=== PATIENT | female | born 1990 | race Caucasian/White ===

== ENCOUNTER 2017-11-30 15:30 | Emergency (ER) | payer OTHER ==
[2017-11-30 15:46] VITALS: BP 113/84
--- NOTE | 2017-11-30 16:18 | ED Physician Documentation ---
PD HPI SKIN - Stated complaint Stated Complaint: TAILBONE PX - Chief complaint Chief Complaint: Wound - History obtained from History obtained from: Patient - History of Present Illness Timing - onset: How many days ago (4) Timing - duration: Days (4) Timing - details: Gradual onset, Still present Location: Back Quality / character: Painful, Discolored, Swelling Improved by: Other (meloxicam and ibuprofen) Associated symptoms: No: Fever, Myalgias, Joint pain, Headache, Facial swelling , Dyspnea, Abd pain, N/V/D, Urinary sx Similar symptoms before: Has not had sx before Recently seen: Not recently seen - Additional information Additional information: 27-year-old female has developed pain at the end of her back above her tailbone and it is become red. She has had this about 4 days now. She does not recall injuring the area at all. She has not had this happen to her previously. She does not have a fever or chills. Review of Systems Constitutional: denies: Fever, Chills Eyes: denies: Decreased vision Ears: denies: Ear pain Nose: denies: Congestion Throat: denies: Sore throat Cardiac: denies: Chest pain / pressure Respiratory: denies: Dyspnea, Cough GI: denies: Abdominal Pain, Nausea, Vomiting : denies: Dysuria, Frequency Skin: reports: Other (tender area over buttocks) Musculoskeletal: denies: Neck pain, Back pain, Extremity pain Neurologic: denies: Generalized weakness, Focal weakness, Numbness PD PAST MEDICAL HISTORY - Past Medical History Past Medical History: Yes Musculoskeletal: Other Other Past Medical History: Arthritis - Past Surgical History Past Surgical History: No - Present Medications Home Medications: Ambulatory Orders Medication Instructions Recorded Confirmed Control Pills 11/30/17 Sulfamethoxazole/Trimethoprim 1 each PO BID #14 tablet 11/30/17 [Sulfamethoxazole-Tmp Ds Tablet] - Allergies Allergies/Adverse Reactions: Allergies Allergy/AdvReac Type Severity Reaction Status Date / Time No Known Drug Allergies Allergy Verified 11/30/17 15:46 - Social History Does the pt smoke?: No Smoking Status: Never smoker Does the pt drink ETOH?: Yes Does the pt have substance abuse?: No - Immunizations Immunizations are current?: Yes PD ED PE NORMAL - Vitals Vital signs reviewed: Yes (hypertensive) - General General: Alert and oriented X 3, No acute distress, Well developed/nourished - HEENT HEENT: Atraumatic, PERRL - Neck Neck: Supple, no meningeal sign - Respiratory Respiratory: No respiratory distress - Back Back: Other (At the end of the lumbar spine over the proximal sacrum there is some redness and tenderness with a palpable firm mass. There is no fluctuance and the tenderness is not exquisit. ) - Derm Derm: Normal color, Warm and dry, No rash - Extremities Extremities: No deformity, No edema - Neuro Neuro: Alert and oriented X 3, buyer assistant 2-12 intact, No motor deficit, No sensory deficit, Normal speech Eye Opening: Spontaneous Motor: Obeys Commands Verbal: Oriented GCS Score: 15 - Psych Psych: Normal mood, Normal affect Results - Vitals Vitals: Vital Signs - 24 hr 11/30/17 15:40 Temperature 36.3 C L Heart Rate 72 Respiratory 16 Rate Blood Pressure 113/84 H O2 Saturation 97 Oxygen O2 Source Room air PD MEDICAL DECISION MAKING - ED course Complexity details: considered differential, d/w patient ED course: 27-year-old female with a pilonidal cyst that is inflamed but is not ripe for incision and drainage. - Sepsis Event Vital Signs: Vital Signs - 24 hr 11/30/17 15:40 Temperature 36.3 C L Heart Rate 72 Respiratory 16 Rate Blood Pressure 113/84 H O2 Saturation 97 Oxygen O2 Source Room air Departure - Departure Disposition: 01 Home, Self Care Clinical Impression: Pilonidal cyst with abscess Condition: Stable Instructions: ED Cyst Pilonidal Infec Abx Only Follow-Up: YOVANNY HENRY MD [Primary Care Provider] - Prescriptions: Sulfamethoxazole/Trimethoprim [Sulfamethoxazole-Tmp Ds Tablet] 1 each PO BID # 14 tablet
== END 2017-11-30 16:24 | disposition home or self-care (01) ==
LOC: ED 15:30
DX: L05.01 Pilonidal cyst with abscess (principal)
CPT/HCPCS: 99283

== ENCOUNTER 2017-12-03 08:08 | Emergency (ER) | payer OTHER ==
--- NOTE | 2017-12-03 09:24 | ED Physician Documentation ---
PD HPI MHE - History of Present Illness Primary symptom: Other (has had redness and swelling at tailbone area for several days.Seen in ER couple days ago and not felt to have abscess as yet. Rx with Bactrim. Patient says the area nathalia more swelling and has gotten more painful despite 2 days on the meds. No fevers.) Timing - onset: How many days ago (several) Recently seen: Emergency Dept (2 days ago and Rx with Bactrim for cellulitic appearance and did not have abscess appearance as yet) Review of Systems Constitutional: denies: Fever, Myalgias GI: denies: Abdominal Pain, Nausea, Vomiting, Diarrhea : denies: Dysuria, Frequency Skin: reports: Lesions (red, firm swelling area at tailbone/ posterior rectum area. No hemorrhoids.) Musculoskeletal: denies: Back pain PD PAST MEDICAL HISTORY - Past Medical History Cardiovascular: None Respiratory: None Neuro: None Endocrine/Autoimmune: None Musculoskeletal: Other - Past Surgical History Past Surgical History: No - Present Medications Home Medications: Ambulatory Orders Medication Instructions Recorded Confirmed Control Pills 11/30/17 Sulfamethoxazole/Trimethoprim 1 each PO BID #14 tablet 11/30/17 [Sulfamethoxazole-Tmp Ds Tablet] HYDROcod/ACETAM 5/325 [[place] 5/325] 1 tab PO Q6H PRN #15 tablet 12/03/17 RX: Naproxen 375 mg PO BID #20 tablet 12/03/17 Sulfamethox/Trimeth 800/160 1 each PO BID #14 tablet 12/03/17 [Bactrim Ds 800/160] - Allergies Allergies/Adverse Reactions: Allergies Allergy/AdvReac Type Severity Reaction Status Date / Time No Known Drug Allergies Allergy Verified 12/03/17 08:42 - Social History Does the pt smoke?: No Smoking Status: Never smoker Does the pt drink ETOH?: Yes Does the pt have substance abuse?: No - Immunizations Immunizations are current?: Yes PD ED PE NORMAL - Vitals Vital signs reviewed: Yes - General General: Alert and oriented X 3, Well developed/nourished, Other (appears in pain to try to sit.) - Abdomen Abdomen: Soft, Non tender - Back Back: No CVA TTP - Derm Derm: Normal color, Warm and dry, Other (redness with swelling and firmness in central pilonidal area, more to the left. SUrrounding redness as well. ) - Neuro Neuro: Alert and oriented X 3, No motor deficit, Normal speech Results - Vitals Vitals: Vital Signs - 24 hr 12/03/17 12/03/17 08:35 11:29 Temperature 36.4 C L 36.4 C L Heart Rate 90 90 Respiratory 16 16 Rate Blood Pressure 111/81 H 132/82 H O2 Saturation 96 97 Oxygen O2 Source Room air Procedures - Abscess I&D (location) pilonidal area Preparation: Confirmed with ultrasound, Chlorhexadine, Lidocaine 2 %, With epi Incision: Incised with scalpel, Purulent drainage, Irrigated, Packed. No: Culture obtained Other: Pt tolerated well, Dressing applied, Antibiotic prescribed PD MEDICAL DECISION MAKING - ED course Complexity details: reviewed old records, considered differential (bedside U/S showing fluid collection now. ), d/w patient - Sepsis Event Vital Signs: Vital Signs - 24 hr 12/03/17 12/03/17 08:35 11:29 Temperature 36.4 C L 36.4 C L Heart Rate 90 90 Respiratory 16 16 Rate Blood Pressure 111/81 H 132/82 H O2 Saturation 96 97 Oxygen O2 Source Room air Departure - Departure Disposition: 01 Home, Self Care Clinical Impression: Pilonidal cyst with abscess Condition: Stable Record reviewed to determine appropriate education?: Yes Instructions: ED Abscess IandD Follow-Up: YOVANNY HENRY MD [Primary Care Provider] - Prescriptions: HYDROcod/ACETAM 5/325 [[place] 5/325] 1 tab PO Q6H PRN #15 tablet PRN Reason: Pain RX: Naproxen 375 mg PO BID #20 tablet Sulfamethox/Trimeth 800/160 [Bactrim Ds 800/160] 1 each PO BID #14 tablet Comments: This should get improving better now that it is draining. Leave the wick in there for 1-2 days. This will promote further drainage from the incised abscess. Continue the Bactrim antibiotics for several more days to week to clear at the infection inside as well. Recheck in 1-2 days for wick removal and to see how you are doing. Naproxen or ibuprofen 2-3 times a day for inflammation and pain. Add Tylenol or hydrocodone as needed for pain. Rest off work today and tonight. Forms: Activity restrictions Discharge Date/Time: 12/03/17 11:31
[2017-12-03] MEDS ORDERED: LIDOCAINE MPF 2%-EPI 1:200000 20 ML VIAL SUBQ ONE (09:43)
[2017-12-03] MEDS ORDERED: NAPROXEN 250 MG TABLET PO STA (09:44)
[2017-12-03] MEDS ORDERED: ACETAMINOPHEN 325 MG TABLET PO STA (09:44)
[2017-12-03 11:31] VITALS: BP 132/82
== END 2017-12-03 11:31 | disposition home or self-care (01) ==
LOC: ED 08:08
DX: L05.01 Pilonidal cyst with abscess (principal)
CPT/HCPCS: 10080; 99283; A9270

== ENCOUNTER 2018-05-10 21:31 | Emergency (ER) | payer OTHER ==
[2018-05-10 21:52] VITALS: BP 130/74
--- NOTE | 2018-05-10 21:55 | ED Physician Documentation ---
PD HPI FEMALE - Stated complaint Stated Complaint: FEM - Chief complaint Chief Complaint: Abd Pain - History obtained from History obtained from: Patient - History of Present Illness Timing - onset: How many days ago (2) Timing - duration: Days (2) Timing - details: Gradual onset, Still present Associated symptoms: Dysuria, Urinary frequency (with odorous urine smell). 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 - Present Medications Home Medications: Ambulatory Orders Medication Instructions Recorded Confirmed Control Pills 11/30/17 Sulfamethoxazole/Trimethoprim 1 each PO BID #14 tablet 11/30/17 [Sulfamethoxazole-Tmp Ds Tablet] HYDROcod/ACETAM 5/325 [[place] 5/325] 1 tab PO Q6H PRN #15 tablet 12/03/17 Naproxen 375 mg PO BID #20 tablet 12/03/17 Sulfamethox/Trimeth 800/160 1 each PO BID #14 tablet 12/03/17 [Bactrim Ds 800/160] Phenazopyridine HCl [Pyridium] 200 mg PO TID PRN #6 tablet 05/10/18 Sulfamethox/Trimeth 800/160 1 each PO BID #10 tablet 05/10/18 [Bactrim Ds 800/160] - Allergies Allergies/Adverse Reactions: Allergies Allergy/AdvReac Type Severity Reaction Status Date / Time No Known Drug Allergies Allergy Verified 05/10/18 21:52 - Social History Does the pt smoke?: No Smoking Status: Never smoker Does the pt drink ETOH?: Yes Does the pt have substance abuse?: No - Immunizations Immunizations are current?: Yes PD ED PE NORMAL - Vitals Vital signs reviewed: Yes - General General: Alert and oriented X 3, No acute distress, Well developed/nourished - Abdomen Abdomen: Soft, Non tender - Back Back: No CVA TTP - Derm Derm: Normal color, Warm and dry Results - Vitals Vitals: Oxygen O2 Source Room air - Labs Labs: Laboratory Tests 05/10/18 21:45 Urine Color YELLOW Urine Clarity CLEAR Urine pH 7.0 Ur Specific [place] 1.020 Urine Protein NEGATIVE Urine Glucose (UA) NEGATIVE Urine Ketones NEGATIVE Urine Occult Blood TRACE-INTA Urine Nitrite NEGATIVE Urine Bilirubin NEGATIVE Urine Urobilinogen 0.2 (NORMAL) Ur Leukocyte Esterase SMALL H Urine RBC 6-10 H Urine WBC 6-10 H Ur Squamous Epith Cells MOD Squamous H Urine Bacteria Rare Ur Microscopic Review INDICATED Urine Culture Comments NOT INDICATED Urine HCG, Qual NEGATIVE PD MEDICAL DECISION MAKING - ED course Complexity details: considered differential (dysuria symptoms and UA is reasonably c/w UTI. discussed possible vaginitis and she denies discharge/irritation, so defer pelvic for now. See what urine culture shows and if symptoms improve. ), d/w patient Departure - Departure Disposition: 01 Home, Self Care Clinical Impression: Dysuria UTI (urinary tract infection) Qualifiers: Urinary tract infection type: acute cystitis Hematuria presence: without hematuria Qualified Code(s): N30.00 - Acute cystitis without hematuria Condition: Stable Record reviewed to determine appropriate education?: Yes Instructions: ED UTI Cystitis Female Follow-Up: YOVANNY HENRY MD [Primary Care Provider] - Prescriptions: Phenazopyridine HCl [Pyridium] 200 mg PO TID PRN #6 tablet PRN Reason: dysuria Sulfamethox/Trimeth 800/160 [Bactrim Ds 800/160] 1 each PO BID #10 tablet Comments: Drink lots of fluids and stay well-hydrated. Your urine test looks consistent enough with bladder infection to treat it that way. Your test is negative. Take phenazopyridine 3 times a day to help with the discomfort of urination. Tylenol or ibuprofen if needed for discomfort. Bactrim antibiotic twice daily as directed for 5 days. Recheck if not improved over the next few days or if not fully better by 3-5 days. Alternative considerations would be back material vaginal infection instead but again your urine looks enough like a bladder infection to account for your symptoms. Discharge Date/Time: 05/10/18 22:28
[2018-05-10 21:56] LABS: BILIRUBIN,URINE NEGATIVE (NEGATIVE); GLUCOSE, URINE (UA) NEGATIVE (NEGATIVE); KETONES,URINE (UA) NEGATIVE (NEGATIVE); LEUKOCYTE ESTERASE, URINE SMALL (NEGATIVE); NITRITE,URINE NEGATIVE (NEGATIVE); OCCULT BLOOD,URINE TRACE-INTA (NEGATIVE); PROTEIN,URINE NEGATIVE (NEGATIVE); UROBILINOGEN,URINE 0.2 (NORMAL) E.U./dL (NORMAL)
[2018-05-10 22:01] LABS: CLARITY,URINE CLEAR (CLEAR); HCG UR QUAL NEGATIVE
[2018-05-10 22:11] LABS: BACTERIA,URINE Rare /HPF (None Seen); SQUAMOUS EPITHELIAL CELL,UR MOD Squamous (<= Few)
[2018-05-10] MEDS ORDERED: PHENAZOPYRIDINE 100 MG TABLET PO STA (22:19)
[2018-05-10] MEDS ORDERED: SULFAMETH/TRIMETH DS 800/160 MG TABLET PO STA (22:21)
== END 2018-05-10 22:28 | disposition home or self-care (01) ==
LOC: ED 21:31
DX: N30.00 Acute cystitis without hematuria (principal)
CPT/HCPCS: 81001; 81025; 99283; A9270; 81003; 87086

== ENCOUNTER 2019-02-14 12:48 | Emergency (ER) | payer OTHER ==
[2019-02-14 12:58] VITALS: BP 147/95
--- NOTE | 2019-02-14 13:04 | ED Physician Documentation ---
History of Present Illness - Stated complaint Stated Complaint: FEM - Chief complaint Chief Complaint: General - History obtained from History obtained from: Patient (For the last couple of days she has had itching from her vagina with a small amount of increased discharge. Sex was uncomfortable. A little bit of dysuria. 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 - Present Medications Home Medications: Ambulatory Orders Medication Instructions Recorded Confirmed Control Pills 11/30/17 Sulfamethoxazole/Trimethoprim 1 each PO BID #14 tablet 11/30/17 [Sulfamethoxazole-Tmp Ds Tablet] HYDROcod/ACETAM 5/325 [[place] 5/325] 1 tab PO Q6H PRN #15 tablet 12/03/17 Naproxen 375 mg PO BID #20 tablet 12/03/17 Sulfamethox/Trimeth 800/160 1 each PO BID #14 tablet 12/03/17 [Bactrim Ds 800/160] Phenazopyridine HCl [Pyridium] 200 mg PO TID PRN #6 tablet 05/10/18 Sulfamethox/Trimeth 800/160 1 each PO BID #10 tablet 05/10/18 [Bactrim Ds 800/160] - Allergies Allergies/Adverse Reactions: Allergies Allergy/AdvReac Type Severity Reaction Status Date / Time No Known Drug Allergies Allergy Verified 02/14/19 12:53 - Social History Does the pt smoke?: No Smoking Status: Never smoker Does the pt drink ETOH?: Yes Does the pt have substance abuse?: No - Immunizations Immunizations are current?: Yes PD ED PE NORMAL - Vitals Vital signs reviewed: Yes - General General: Alert and oriented X 3, No acute distress - Abdomen Abdomen: Soft, Non tender - Female Female : Deferred (She will self collect swabs) - Back Back: No CVA TTP, No spinal TTP - Derm Derm: No rash - Neuro Neuro: Alert and oriented X 3, Normal speech Results - Vitals Vitals: Vital Signs - 24 hr 02/14/19 12:53 Temperature 36.7 C Heart Rate 81 Respiratory 15 Rate Blood Pressure 147/95 H O2 Saturation 100 Oxygen O2 Source Room air - Labs Labs: Microbiology 02/14/19 13:17 Wet Prep - Final Genital - Vaginal Laboratory Tests 02/14/19 13:17 Urine Color YELLOW Urine Clarity CLEAR Urine pH 6.0 Ur Specific [place] 1.010 Urine Protein NEGATIVE Urine Glucose (UA) NEGATIVE Urine Ketones NEGATIVE Urine Occult Blood NEGATIVE Urine Nitrite NEGATIVE Urine Bilirubin NEGATIVE Urine Urobilinogen 0.2 (NORMAL) Ur Leukocyte Esterase NEGATIVE Ur Microscopic Review NOT INDICATED Urine Culture Comments NOT INDICATED Urine HCG, Qual NEGATIVE PD MEDICAL DECISION MAKING - ED course ED course: 29-year-old woman with symptoms most consistent with a vaginitis. Initial wet prep and urinalysis are negative. After discussion of options we will give her fluconazole pending PCR swabs. Departure - Departure Disposition: 01 Home, Self Care Clinical Impression: Vaginitis Qualifiers: Chronicity: acute Qualified Code(s): N76.0 - Acute vaginitis Condition: Good Record reviewed to determine appropriate education?: Yes Instructions: ED Vaginal Infec Fungal [place] Comments: As discussed your initial swabs are negative, if you have an STD or other infection other than a yeast infection we will call you later. You are treated for a yeast infection. Return for new or worsening symptoms. 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 Discharge Date/Time: 02/14/19 14:04
[2019-02-14 13:25] LABS: BILIRUBIN,URINE NEGATIVE (NEGATIVE); GLUCOSE, URINE (UA) NEGATIVE (NEGATIVE); KETONES,URINE (UA) NEGATIVE (NEGATIVE); LEUKOCYTE ESTERASE, URINE NEGATIVE (NEGATIVE); NITRITE,URINE NEGATIVE (NEGATIVE); OCCULT BLOOD,URINE NEGATIVE (NEGATIVE); PROTEIN,URINE NEGATIVE (NEGATIVE); UROBILINOGEN,URINE 0.2 (NORMAL) E.U./dL (NORMAL)
[2019-02-14 13:27] LABS: CLARITY,URINE CLEAR (CLEAR); HCG UR QUAL NEGATIVE
[2019-02-14] MEDS ORDERED: FLUCONAZOLE 100 MG TABLET PO STA (13:39)
[2019-02-14 15:30] LABS: CANDIDA GROUP DNA NEGATIVE (NEGATIVE); CANDIDA KRUSEI DNA NEGATIVE (NEGATIVE); TRICHOMONAS VAGINALIS DNA NEGATIVE (NEGATIVE)
[2019-02-14 20:36] LABS: TRICHOMONAS VAGINALIS DNA NEGATIVE (NEGATIVE)
== END 2019-02-14 14:04 | disposition home or self-care (01) ==
LOC: ED 12:48
DX: N76.0 Acute vaginitis (principal)
CPT/HCPCS: 81003; 81025; 87210; 87481; 87491; 87591; 87661; 87801; 99283; A9270; 81001; 87086

== ENCOUNTER 2020-06-29 18:45 | Emergency (ER) | payer OTHER ==
--- OUTSIDE RECORDS SUMMARY | 2020-06-29 19:01 | EXTERNAL MEDICAL SUMMARY RPT | Continuity of Care Document ---
:1990 Demographics Phone Unavailable Preferred Language Unknown Marital Status Unknown [employer]an Affiliation Unknown Race Unknown Ethnic Group Unknown Author Organization [facility] Address [address] [place] [address] Phone Social History date description facility [id number]
[2020-06-29 19:51] VITALS: BP 142/78
--- NOTE | 2020-06-30 05:21 | ED Physician Documentation ---
History of Present Illness - Stated complaint Stated Complaint: FEMALE - Chief complaint Chief Complaint: General - History obtained from History obtained from: Patient - Additonal information Additional information: 30-year-old woman presents requesting a test, stating that she took several negative tests at home but is concerned that they are false negatives. No other concerns at this time. Review of Systems : reports: Missed period. 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 - Present Medications Home Medications: Ambulatory Orders Medication Instructions Recorded Confirmed Dextroamphetamine/Amphetamine 10 mg PO QPM 06/29/20 06/29/20 [Adderall 10 mg Tablet] Dextroamphetamine/Amphetamine 30 mg PO DAILY 06/29/20 06/29/20 [Adderall 30 mg Tablet] - Allergies Allergies/Adverse Reactions: Allergies Allergy/AdvReac Type Severity Reaction Status Date / Time No Known Drug Allergies Allergy Verified 06/29/20 18:48 - Social History Does the pt smoke?: No Smoking Status: Never smoker Does the pt drink ETOH?: Yes Does the pt have substance abuse?: No - Immunizations Immunizations are current?: Yes - POLST Patient has POLST: No PD ED PE NORMAL - Vitals Vital signs reviewed: Yes - General General: Alert and oriented X 3, No acute distress, Well developed/nourished - HEENT HEENT: Atraumatic, PERRL, EOMI - Derm Derm: Normal color, Warm and dry - Psych Psych: Normal mood, Normal affect Results - Vitals Vitals: Vital Signs - 24 hr 06/29/20 06/29/20 18:49 19:51 Temperature 36.7 C 36.7 C Heart Rate 90 88 Respiratory 18 19 Rate Blood Pressure 150/86 H 142/78 H O2 Saturation 100 100 Oxygen O2 Source Room air - Labs Labs: Laboratory Tests 06/29/20 19:10 HCG, Quant < 0.60 PD MEDICAL DECISION MAKING - ED course ED course: 30-year-old woman presents requesting blood test. Her test was negative. I informed the patient and she had no other concerns. Patient will follow up with her primary doctor Departure - Departure Disposition: 01 Home, Self Care Clinical Impression: Encounter for medical screening examination Condition: Good Comments: You are not . Please follow-up with your primary doctor. Return to the emergency department if you have other concerns Discharge Date/Time: 06/29/20 20:40
== END 2020-06-29 20:40 | disposition home or self-care (01) ==
LOC: ED 18:45
DX: Z32.02 Encounter for pregnancy test, result negative (principal); N91.2 Amenorrhea, unspecified
CPT/HCPCS: 36415; 84702; 99281; 99283

== ENCOUNTER 2020-08-23 11:35 | Outpatient (CLI) | payer OTHER ==
[2020-08-23 18:13] LABS: BASOPHILS % (AUTO) 0.5 %; EOSINOPHILS # (AUTO) 0.1 10^3/uL (0.0-0.7); EOSINOPHILS % (AUTO) 1.4 %; HCT - HEMATOCRIT 46.2 % (37.0-47.0); HGB - HEMOGLOBIN 14.6 g/dL (12.0-16.0); LYMPHOCYTES # (AUTO) 2.6 10^3/uL (1.5-3.5); LYMPHOCYTES % (AUTO) 34.3 %; MEAN CORPUSCULAR HEMOGLOBIN 27.5 pg (27.0-31.0); MEAN CORPUSCULAR HGB CONC 31.6 g/dL (32.0-36.0); MEAN CORPUSCULAR VOLUME 87.2 fL (81.0-99.0); MONOCYTES # (AUTO) 0.8 10^3/uL (0.0-1.0); MONOCYTES % (AUTO) 10.1 %; NEUTROPHILS # (AUTO) 4.1 10^3/uL (1.5-6.6); NEUTROPHILS % (AUTO) 53.4 %; PLT - PLATELET COUNT 303 10^3/uL (130-450); RED CELL DISTRIBUTION WIDTH 13.3 % (12.0-15.0); WHITE BLOOD COUNT 7.7 x10^3/uL (4.8-10.8)
[2020-08-23 18:40] LABS: ALBUMIN 4.5 g/dL (3.2-5.5); ALBUMIN/GLOBULIN RATIO 1.5 (1.0-2.2); ALKALINE PHOSPHATASE 87 IU/L (42-121); ALT ALANINE AMINOTRANSFERASE 30 IU/L (10-60); AST ASPARTATE AMINOTRANSFERASE 22 IU/L (10-42); BILIRUBIN,TOTAL 0.5 mg/dL (0.2-1.0); BUN - BLOOD UREA NITROGEN 9 mg/dL (6-20); CALCIUM 9.2 mg/dL (8.5-10.3); CARBON DIOXIDE - CO2 24 mmol/L (21-32); CHLORIDE 103 mmol/L (101-111); CHOL/HDL RATIO 4.4 (<4.4); CHOLESTEROL 206 mg/dL; CREATININE 0.7 mg/dL (0.4-1.0); GFR - MDRD 100 (>89); GLUCOSE 85 mg/dL (70-100); HDL CHOLESTEROL 47 mg/dL; LDL CHOLESTEROL,CALCULATED 141 mg/dL; POTASSIUM 4.3 mmol/L (3.5-5.0); SODIUM 138 mmol/L (135-145); TOTAL PROTEIN 7.6 g/dL (6.7-8.2); TRIGLYCERIDES 89 mg/dL; VLDL CHOLESTEROL 18 mg/dL
[2020-08-23 18:54] LABS: THYROID STIMULATING HORMONE 0.95 uIU/mL (0.34-5.60)
[2020-08-23 18:56] LABS: FREE T4 (FREE THYROXINE) 0.89 ng/dL (0.58-1.64)
[2020-08-23 19:00] LABS: PROLACTIN 5.35 ng/mL
[2020-08-23 19:21] LABS: FOLLICLE STIMULATING HORMONE 5.87 mIU/mL
[2020-08-23 20:22] LABS: ESTIMATED AVERAGE GLUCOSE 108 mg/dL (70-100); HEMOGLOBIN A1c% 5.4 % (4.27-6.07)
[2020-08-30 12:54] LABS: HEPATITIS C ANTIBODY Non-reactive
[2020-08-30 12:59] LABS: HEPATITIS B SURFACE ANTIGEN NON-REACTIVE
== END 2020-08-23 23:59 | disposition home or self-care (01) ==
LOC: LAB.WCP 11:35
PROVIDERS: ATTEND Obstetrics & Gynecology
DX: Z13.220 Encounter for screening for lipoid disorders (principal); Z83.2 Family history of diseases of the blood and blood-forming organs and certain disorders involving the immune mechanism; Z13.21 Encounter for screening for nutritional disorder; N91.1 Secondary amenorrhea; Z13.1 Encounter for screening for diabetes mellitus; Z11.3 Encounter for screening for infections with a predominantly sexual mode of transmission
CPT/HCPCS: 36415; 80053; 80061; 81241; 81599; 82306; 82670; 83001; 83036; 83498; 83520; 83721; 84146; 84403; 84439; 84443; 84702; 85025; 86592; 86762; 86787; 86803; 87340; 87389

== ENCOUNTER 2020-09-23 13:42 | Outpatient (CLI) | payer OTHER ==
--- NOTE | 2020-09-23 14:52 | Ultrasound Report ---
PROCEDURE: Pelvic w/Transvaginal INDICATIONS: Amenorrhea TECHNIQUE: Real-time scanning was performed of the pelvic organs, with image documentation. Additional endovagi nal scanning was necessary due to incomplete visualization of the adnexal and endometrial structures by transabdominal scanning. COMPARISON: None. FINDINGS: No pathologic free abdominal or pelvic fluid. Uterus: Uterus is normal in size at 2.5 x 4.3 x 6.3 cm. No uterine mass. No intrauterine gestationa l sac or fluid in the uterine cavity. The endometrium measures 5 mm in combined thickness. Ovaries: There are numerous subcentimeter follicles at the periphery of both ovaries, greater than 1 5 identified in each ovary. No solid ovarian or adnexal mass. The right ovary measures 2.4 x 3.8 x 4. 1 cm. The left ovary measures 1.8 x 2.1 x 4.3 cm. IMPRESSION: Numerous subcentimeter follicles at the periphery of both ovaries (graded and 15 identified in each o vary). 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 No findings of intrauterine . Reviewed by: Sam Oconnell MD on 09/23/2020 2:51 PM PDT Approved by: Sam Oconnell MD on 09/23/2020 2:51 PM PDT Station ID: [id number]
== END 2020-09-23 13:43 | disposition home or self-care (01) ==
LOC: DI 13:42
PROVIDERS: ATTEND Obstetrics & Gynecology
DX: N91.1 Secondary amenorrhea (principal)

== ENCOUNTER 2021-01-01 12:23 | Emergency (ER) | payer OTHER ==
[2021-01-01 12:37] VITALS: BP 142/84
--- NOTE | 2021-01-01 12:42 | ED Physician Documentation ---
PD HPI FEMALE - Stated complaint Stated Complaint: Female - Chief complaint Chief Complaint: UTI - History obtained from History obtained from: Patient - History of Present Illness Timing - onset: Today, Yesterday Timing - duration: Days (1) Timing - details: Abrupt onset, Still present Associated symptoms: Dysuria, Urinary frequency. 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 - Present Medications Home Medications: Ambulatory Orders Medication Instructions Recorded Confirmed Dextroamphetamine/Amphetamine 10 mg PO QPM 06/29/20 06/29/20 [Adderall 10 mg Tablet] Dextroamphetamine/Amphetamine 30 mg PO DAILY 06/29/20 06/29/20 [Adderall 30 mg Tablet] Phenazopyridine HCl [Pyridium] 100 mg PO TID PRN #15 tablet 01/01/21 cephALEXin [Keflex] 500 mg PO TID 5 Days #15 cap 01/01/21 - Allergies Allergies/Adverse Reactions: Allergies Allergy/AdvReac Type Severity Reaction Status Date / Time No Known Drug Allergies Allergy Verified 01/01/21 12:37 - Social History Does the pt smoke?: No Smoking Status: Never smoker Does the pt drink ETOH?: Yes Does the pt have substance abuse?: No - Immunizations Immunizations are current?: Yes - POLST Patient has POLST: No PD ED PE NORMAL - Vitals Vital signs reviewed: Yes - General General: Alert and oriented X 3, No acute distress, Well developed/nourished - Abdomen Abdomen: Soft, Non tender - Back Back: No CVA TTP - Derm Derm: Normal color, Warm and dry Results - Vitals Vitals: Vital Signs - 24 hr 01/01/21 12:34 Temperature 36.4 C L Heart Rate 80 Respiratory 16 Rate Blood Pressure 142/84 H O2 Saturation 99 Oxygen O2 Source Room air - Labs Labs: Laboratory Tests 01/01/21 01/01/21 12:42 12:42 Urine Color YELLOW Urine Clarity SL. CLOUDY Urine pH 5.5 Ur Specific [place] 1.025 Urine Protein NEGATIVE Urine Glucose (UA) NEGATIVE Urine Ketones NEGATIVE Urine Occult Blood NEGATIVE Urine Nitrite NEGATIVE Urine Bilirubin NEGATIVE Urine Urobilinogen 0.2 (NORMAL) Ur Leukocyte Esterase TRACE H Urine RBC None Seen Urine WBC 11-25 H Ur Squamous Epith Cells MOD Squamous H Urine Bacteria Few Ur Microscopic Review INDICATED Urine Culture Comments NOT INDICATED Urine HCG, Qual NEGATIVE PD MEDICAL DECISION MAKING - ED course Complexity details: reviewed results (UA c/w infection. ), considered differential, d/w patient Departure - Departure Disposition: 01 Home, Self Care Clinical Impression: Dysuria, UTI (urinary tract infection) Condition: Stable Record reviewed to determine appropriate education?: Yes Instructions: ED UTI Cystitis Female Follow-Up: Germania Madrid ARNP [Primary Care Provider] - Prescriptions: cephALEXin [Keflex] 500 mg PO TID 5 Days #15 cap Phenazopyridine HCl [Pyridium] 100 mg PO TID PRN #15 tablet PRN Reason: Abdominal Pain Comments: Your urine test does show signs of infection cells (leukocytes) and your symptoms would be consistent with a bladder infection. We can treat it with cephalexin antibiotic as directed. You can also use phenazopyridine 3 times a day if needed for urinary discomfort. Stay well-hydrated. I would anticipate improvement over the next 2 to 3 days. Recheck if worsening or not improved in that timeframe. The urine culture should result in a couple of days and will call you if we need to modify the antibiotic choice based on that. [facility] [place].
[2021-01-01 12:51] LABS: BILIRUBIN,URINE NEGATIVE (NEGATIVE); GLUCOSE, URINE (UA) NEGATIVE (NEGATIVE); KETONES,URINE (UA) NEGATIVE (NEGATIVE); LEUKOCYTE ESTERASE, URINE TRACE (NEGATIVE); NITRITE,URINE NEGATIVE (NEGATIVE); OCCULT BLOOD,URINE NEGATIVE (NEGATIVE); PH,URINE 5.5 PH (5.0-7.5); PROTEIN,URINE NEGATIVE (NEGATIVE); UROBILINOGEN,URINE 0.2 (NORMAL) E.U./dL (NORMAL)
[2021-01-01 12:54] LABS: CLARITY,URINE SL. CLOUDY (CLEAR); HCG UR QUAL NEGATIVE
[2021-01-01] MEDS ORDERED: PHENAZOPYRIDINE 100 MG TABLET PO STA (12:56)
[2021-01-01] MEDS ORDERED: cephALEXin 250 MG CAPSULE PO STA (12:56)
[2021-01-01 13:03] LABS: BACTERIA,URINE Few /HPF (None Seen); RBC,URINE None Seen /HPF (0-5); SQUAMOUS EPITHELIAL CELL,UR MOD Squamous (<= Few)
== END 2021-01-01 13:25 | disposition home or self-care (01) ==
LOC: ED 12:23
DX: N39.0 Urinary tract infection, site not specified (principal)
CPT/HCPCS: 81001; 81025; 99283; A9270; 81003; 87086

== ENCOUNTER 2021-01-17 14:42 | Outpatient (CLI) | payer OTHER | END 2021-01-17 14:43 | disposition home or self-care (01) | LOC: LAB 14:42 | PROVIDERS: ATTEND Obstetrics & Gynecology | DX: E55.9 Vitamin D deficiency, unspecified (principal) | CPT/HCPCS: 36415; 82306 ==

== ENCOUNTER 2021-02-02 08:00 | Outpatient (CLI) | payer OTHER ==
[2021-02-02 17:48] LABS: BASOPHILS % (AUTO) 0.4 %; EOSINOPHILS # (AUTO) 0.1 10^3/uL (0.0-0.7); EOSINOPHILS % (AUTO) 0.7 %; HCT - HEMATOCRIT 47.3 % (37.0-47.0); HGB - HEMOGLOBIN 14.8 g/dL (12.0-16.0); LYMPHOCYTES # (AUTO) 2.9 10^3/uL (1.5-3.5); LYMPHOCYTES % (AUTO) 26.1 %; MEAN CORPUSCULAR HEMOGLOBIN 26.9 pg (27.0-31.0); MEAN CORPUSCULAR HGB CONC 31.3 g/dL (32.0-36.0); MEAN PLATELET VOLUME 10.7 fL (7.9-10.8); MONOCYTES # (AUTO) 0.8 10^3/uL (0.0-1.0); MONOCYTES % (AUTO) 7.3 %; NEUTROPHILS # (AUTO) 7.1 10^3/uL (1.5-6.6); PLT - PLATELET COUNT 308 10^3/uL (130-450); RED CELL DISTRIBUTION WIDTH 13.8 % (12.0-15.0); WHITE BLOOD COUNT 10.9 x10^3/uL (4.8-10.8)
[2021-02-02 18:26] LABS: ALBUMIN 4.8 g/dL (3.2-5.5); ALBUMIN/GLOBULIN RATIO 1.5 (1.0-2.2); BILIRUBIN,TOTAL 1.1 mg/dL (0.2-1.0); CALCIUM 9.8 mg/dL (8.5-10.3); CREATININE 0.7 mg/dL (0.4-1.0); POTASSIUM 4.3 mmol/L (3.5-5.0); TOTAL PROTEIN 8.1 g/dL (6.7-8.2)
[2021-02-02 18:36] LABS: THYROID STIMULATING HORMONE 0.93 uIU/mL (0.34-5.60)
== END 2021-02-02 23:59 | disposition home or self-care (01) ==
LOC: LAB.WCP 08:00
PROVIDERS: ATTEND Registered Nurse
DX: F90.9 Attention-deficit hyperactivity disorder, unspecified type (principal); F41.9 Anxiety disorder, unspecified; Z79.899 Other long term (current) drug therapy; Z11.59 Encounter for screening for other viral diseases
CPT/HCPCS: 36415; 80053; 84443; 85025; 86762

== ENCOUNTER 2021-05-20 22:52 | Emergency (ER) | payer OTHER ==
[2021-05-20 23:01] VITALS: BP 154/102
[2021-05-20 23:19] LABS: BILIRUBIN,URINE NEGATIVE (NEGATIVE); GLUCOSE, URINE (UA) NEGATIVE (NEGATIVE); KETONES,URINE (UA) NEGATIVE (NEGATIVE); LEUKOCYTE ESTERASE, URINE NEGATIVE (NEGATIVE); NITRITE,URINE NEGATIVE (NEGATIVE); OCCULT BLOOD,URINE NEGATIVE (NEGATIVE); PH,URINE 6.5 PH (5.0-7.5); PROTEIN,URINE NEGATIVE (NEGATIVE); UROBILINOGEN,URINE 0.2 (NORMAL) E.U./dL (NORMAL)
[2021-05-20 23:22] LABS: CLARITY,URINE CLEAR (CLEAR); HCG UR QUAL NEGATIVE
--- NOTE | 2021-05-20 23:45 | ED Physician Documentation ---
PD HPI FEMALE - Stated complaint Stated Complaint: FEMALE - Chief complaint Chief Complaint: UTI - History obtained from History obtained from: Patient - Additional information Additional information: Patient is a 31-year-old female with history of previous UTIs presenting for evaluation of urinary urgency that has been intermittent for the last 1.5 months. Patient states she has been able to urinate normally but soon after she will have the feeling that she needs to urinate again but only a few drops will come out. She denies odor or blood in her urine. She does report having vaginal spotting 2 weeks ago. She does not believe she is . She denies Abnormal vaginal discharge. Denies concern for STDs. She does use an organic soap to clean her genital area. She denies a rash or itching. Review of Systems Ten Systems: 10 systems reviewed and negative Constitutional: denies: Fever Nose: denies: Congestion Cardiac: denies: Chest pain / pressure Respiratory: denies: Dyspnea, Cough GI: denies: Abdominal Pain, Vomiting : reports: Dysuria. denies: Unable to Void, Hematuria Skin: denies: Rash PD PAST MEDICAL HISTORY - Past Medical History Cardiovascular: None Respiratory: None Neuro: None Endocrine/Autoimmune: None Musculoskeletal: Other - Past Surgical History Past Surgical History: No /[employer]: Breast reduction - Present Medications Home Medications: Ambulatory Orders Medication Instructions Recorded Confirmed Dextroamphetamine/Amphetamine 30 mg PO DAILY 06/29/20 05/20/21 [Adderall 30 mg Tablet] Desogestrel-Ethinyl Estradiol 1 tab PO DAILY 05/20/21 05/20/21 [Isibloom 28 Day Tablet] - Allergies Allergies/Adverse Reactions: Allergies Allergy/AdvReac Type Severity Reaction Status Date / Time No Known Drug Allergies Allergy Verified 01/01/21 12:37 - Social History Does the pt smoke?: No Smoking Status: Never smoker Does the pt drink ETOH?: Yes Does the pt have substance abuse?: No - Immunizations Immunizations are current?: Yes - POLST Patient has POLST: No PD ED PE NORMAL - General General: Alert and oriented X 3, No acute distress, Well developed/nourished - HEENT HEENT: Atraumatic - Cardiac Cardiac: RRR - Respiratory Respiratory: No respiratory distress, Clear bilaterally - Abdomen Abdomen: Normal bowel sounds, Soft, Non tender, Non distended - Female Female : Pt declined, Other (Will self swab) - Back Back: No CVA TTP - Derm Derm: Normal color, Warm and dry - Extremities Extremities: No deformity - Neuro Neuro: Alert and oriented X 3 - Psych Psych: Normal mood, Normal affect Results - Vitals Vitals: Vital Signs - 24 hr 05/20/21 22:56 Temperature 36.9 C Heart Rate 79 Respiratory 16 Rate Blood Pressure 154/102 H O2 Saturation 100 Oxygen O2 Source Room air - Labs Labs: Laboratory Tests 05/20/21 05/20/21 05/20/21 23:12 23:48 23:48 Urine Color YELLOW Urine Clarity CLEAR Urine pH 6.5 Ur Specific [place] 1.025 Urine Protein NEGATIVE Urine Glucose (UA) NEGATIVE Urine Ketones NEGATIVE Urine Occult Blood NEGATIVE Urine Nitrite NEGATIVE Urine Bilirubin NEGATIVE Urine Urobilinogen 0.2 (NORMAL) Ur Leukocyte Esterase NEGATIVE Ur Microscopic Review NOT INDICATED Urine Culture Comments NOT INDICATED Urine HCG, Qual NEGATIVE C. glabrata (PCR) NEGATIVE C. krusei (PCR) NEGATIVE Lucia species DNA NEGATIVE Chlam trachomat DNA PCR NEGATIVE N.gonorrhoeae DNA (PCR) NEGATIVE T. vaginalis (PCR) NEGATIVE NEGATIVE Bact Vaginosis (PCR) NEGATIVE PD MEDICAL DECISION MAKING - ED course ED course: Patient presents venting for evaluation with concerns for possible urinary tract infection. Patient's UA does not suggest bacterial infection. She does report havingYeast infections also with similar symptoms in the past but does not note any abnormal discharge. Patient declines pelvic exam. She does not have abdominal tenderness to suggest intra-abdominal or Pelvic infection or torsion.Post void bladder scan was 14 mL. 105: Patient resting comfortably. Swab results still pending. Per RN, lab had changed wet prep order to Vaginosis panel order and lab Still has another hour before it will result. Patient does not want to wait in the emergency department any further.Previous wet prep and Yeast results from 2019 appear to have been negative. Patient understands I will call her with any abnormal results That result tonight. Patient was also encouraged to follow-up with her primary care doctor And given return precautions. Genital swabs have all returned negative. Departure - Departure Disposition: 01 Home, Self Care Clinical Impression: Urgency of urination Condition: Stable Instructions: Vaginitis Prevent Comments: Please avoid any Soaps or chemicals to your vagina as they may irritate the skin. Use plain water To clean the area. Please follow-up with your primary care doctor next week.Please return to the emergency department with any concerns such as blood in your urine, pain with urination, abdominal pain, vomiting or with any concerns. Discharge Date/Time: 05/21/21 01:22
[2021-05-21 02:19] LABS: BACTERIAL VAGINOSIS DNA NEGATIVE (NEGATIVE); CANDIDA GLABRATA DNA NEGATIVE (NEGATIVE); CANDIDA GROUP DNA NEGATIVE (NEGATIVE); CANDIDA KRUSEI DNA NEGATIVE (NEGATIVE); TRICHOMONAS VAGINALIS DNA NEGATIVE (NEGATIVE)
[2021-05-21 03:54] LABS: CHLAMYDIA TRACHOMATIS DNA NEGATIVE (NEGATIVE); NEISSERIA GONORRHOEAE DNA NEGATIVE (NEGATIVE); TRICHOMONAS VAGINALIS DNA NEGATIVE (NEGATIVE)
== END 2021-05-21 01:22 | disposition home or self-care (01) ==
LOC: ED 22:52
DX: R39.15 Urgency of urination (principal)
CPT/HCPCS: 51798; 81001; 81003; 81025; 87086; 87210; 87491; 87591; 87661; 87801; 99282; 99283

== ENCOUNTER 2021-06-04 17:45 | Emergency (ER) | payer OTHER ==
[2021-06-04 20:33] VITALS: BP 145/99
[2021-06-04] MEDS ORDERED: AMOX/CLAV 875 MG/125 MG TABLET PO STA (21:10)
[2021-06-04] MEDS ORDERED: HYDROcod/ACET 5/325 Prepack 4 PO STA (21:13)
--- NOTE | 2021-06-04 21:25 | ED Physician Documentation ---
PD HPI HEENT - Stated complaint Stated Complaint: MOUTH PX - Chief complaint Chief Complaint: Heent - History obtained from History obtained from: Patient - History of Present Illness Location: Tooth - Additional information Additional information: Patient presenting for evaluation of left upper tooth pain for a few months with worsening pain x 2 days. Patient noticed mild swelling starting yesterday and worsening pain. It is throbbing in sharp in nature. Nothing makes it better or worse. She has tried ibuprofen, Tylenol and meloxicam without relief. She is scheduled to see a dentist on Saturday for a root canal. She denies fever, changes to her vision, trouble swallowing, chest pain, difficulty breathing. 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 HEENT: Tonsil/Adenoidectomy - Present Medications Home Medications: Ambulatory Orders Medication Instructions Recorded Confirmed Dextroamphetamine/Amphetamine 30 mg PO DAILY 06/29/20 06/04/21 [Adderall 30 mg Tablet] Desogestrel-Ethinyl Estradiol 1 tab PO DAILY 05/20/21 06/04/21 [Isibloom 28 Day Tablet] Amox/Clav 875/125 [Augmentin] 1 each PO Q12H #20 tablet 06/04/21 - Allergies Allergies/Adverse Reactions: Allergies Allergy/AdvReac Type Severity Reaction Status Date / Time No Known Drug Allergies Allergy Verified 06/04/21 17:50 - Social History Does the pt smoke?: No Smoking Status: Never smoker Does the pt drink ETOH?: Yes Does the pt have substance abuse?: No - Immunizations Immunizations are current?: Yes - POLST Patient has POLST: No PD ED PE NORMAL - General General: Alert and oriented X 3, No acute distress, Well developed/nourished - HEENT HEENT: Atraumatic, PERRL, EOMI, Moist mucous membranes, Other (very Mild mild facial swelling over right zygomatic region with no erythema, warmth or palpable fluctuance) - Neck Neck: Supple, no meningeal sign - Cardiac Cardiac: RRR - Respiratory Respiratory: No respiratory distress, Clear bilaterally - Derm Derm: Normal color - Neuro Neuro: Alert and oriented X 3, Normal speech - Psych Psych: Normal mood, Normal affect PD ED PE EXPANDED - HEENT HEENT: Dental decay. No: Dental abscess Results - Vitals Vitals: Vital Signs - 24 hr 06/04/21 06/04/21 17:50 20:31 Temperature 36.5 C 37.0 C Heart Rate 100 92 Respiratory 16 16 Rate Blood Pressure 150/90 H 145/99 H O2 Saturation 99 99 Oxygen O2 Source Room air PD MEDICAL DECISION MAKING - ED course ED course: Patient presenting for evaluation of right-sided dental pain with mild facial swelling. No overlying erythema Or palpable fluctuance. No signs of Eduar's angina, airway compromise, deep space infection. Vital signs are stable. Patient will be started on Augmentin and was given a few doses of pain medication for symptomatic relief. Patient was encouraged to follow-up with her dentist on Saturday as scheduled. She was given strict return precautions. Departure - Departure Disposition: , Self Care Clinical Impression: Dental infection Condition: Stable Instructions: ED Tooth Pain Prescriptions: Amox/Clav 875/125 [Augmentin] 1 each PO Q12H #20 tablet Comments: Please follow-up with your dentist as scheduled on Saturday. Please continue taking the antibiotics and use pain medication only if needed. Please do not drive or operate heavy machinery if using a narcotic medication as it may be sedating.Return to emergency department if you develop fever, worsening swelling, difficulty swallowing Or any concerns. Discharge Date/Time: 06/04/21 21:28
== END 2021-06-04 21:28 | disposition home or self-care (01) ==
LOC: ED 17:45
DX: K04.7 Periapical abscess without sinus (principal)
CPT/HCPCS: 99282; A9270